=== PATIENT | male | born 1945 | race Caucasian/White ===

== ENCOUNTER 2017-04-16 22:03 | Emergency (ER) | payer OTHER, BC ==
[2017-04-16 22:10] VITALS: RESP 16; TEMP 97.7
--- NOTE | 2017-04-16 22:23 | EDPHY ---
H & P Stated Complaint: constipation, abd pressure, no bowel movement x 3 days HPI/ROS: HPI CHIEF COMPLAINT: Constipation, abdominal bloating HISTORY OF PRESENT ILLNESS: This patient very pleasant 71-year-old male otherwise healthy except for hypertension, presents emergency room with abdominal pain and abdominal bloating. Patient states he is from [place]. He has been traveling recently he was in [place] and then just landed [place] today. He states he has not had a bowel movement for 3 days. He feels bloated and constipated he did try to take an enema prior to arriving to the emergency room and had some output but still feels constipated. Denies fever, denies chest pain or shortness of breath denies abdominal pain or vomiting. Denies black tarry stool. Past Medical History: Hypertension Past Surgical History: No recent surgery Social History: Lives in [place], denies illicit drugs alcohol tobacco. Family History: Noncontributory ROS REVIEW OF SYSTEMS: A comprehensive 10 point review of systems is otherwise negative aside from elements mentioned in the history of present illness. Exam Constitutional appears well nontoxic triage nursing summary reviewed, vital signs reviewed, awake/alert. Eyes normal conjunctivae and sclera, EOMI, PERRLA. HENT normal inspection, atraumatic, moist mucus membranes, no epistaxis, neck supple/ no meningismus, no raccoon eyes. Respiratory clear to auscultation bilaterally, normal breath sounds, no respiratory distress, no wheezing. Cardiovascular rate normal, regular rhythm, no murmur, no edema, distal pulses normal. Gastrointestinal soft, hypoactive bowel sounds, no rebound, no guarding, normal bowel sounds, no distension, no pulsatile mass. Genitourinary no CVA tenderness. Musculoskeletal no midline vertebral tenderness, full range of motion, no calf swelling, no tenderness of extremities, no meningismus, good pulses, neurovascularly intact. Skin pink, warm, & dry, no rash, skin atraumatic. Neurologic awake, alert and oriented x 3, AAOx3, moves all 4 extremities equally, motor intact, sensory intact, CN II-XII intact, normal cerebellar, normal vision, normal speech. Psychiatric normal mood/affect. Heme/Lymph/Immune no lymphadenopathy. Differential Diagnosis: Includes but is not limited to in a particular order constipation, fecal impaction, bowel obstruction Medical Decision Making: Plan for this patient KUB and then enema. Re-evaluation: 230: Patient had a rather large bowel movement in the ER bathroom. He tells me feels much better. This was post x-ray. I did offer him an enema however he has declined. He states he feels much better would like to be discharged from the emergency room. 2308: KUB is been reviewed. No free air. Constipation seen. Source: Patient - Personal History Current Tetanus/Diphtheria Vaccine: Yes - Medical/Surgical History Hx Asthma: No Hx Chronic Respiratory Disease: No Hx Diabetes: No Hx Cardiac Disease: Yes Hx Renal Disease: No Hx Cirrhosis: No Hx Alcoholism: No Hx HIV/AIDS: No Hx Splenectomy or Spleen Trauma: No Other PMH: HTN - Social History Smoking Status: Never smoked Constitutional: Initial Vital Signs Temperature (C) 36.5 C 04/16/17 22:07 Heart Rate 80 04/16/17 22:07 Respiratory Rate 16 04/16/17 22:07 Blood Pressure 167/79 H 04/16/17 22:07 O2 Sat (%) 93 04/16/17 22:07 O2 Delivery Mode Room Air Allergies/Adverse Reactions: Sulfa (Sulfonamide Antibiotics) Allergy (Verified 04/16/17 22:09) Home Medications: Medication Instructions Recorded Amlodipine Besylate [Norvasc] 5 mg PO 04/16/17 Ciprofloxacin HCl [Ciprofloxacin 0.5 each OT Q12 04/16/17 Opth Drops] Lisinopril [Zestril 20 mg (*)] 20 mg PO DAILY 04/16/17 Polyethylene Glycol 3350 [Miralax 17 gm PO DAILY #2 pkt 04/16/17 17 gm (*)] Medical Decision Making - Diagnostics Imaging Results: Imaging Impressions Abdomen X-Ray 04/16/17 22:29 Impression: 1. Moderate constipation suspected. Departure - Departure Disposition: Home, Routine, Self-Care Clinical Impression: Constipation Qualifiers: Constipation type: other constipation type Qualified Code(s): K59.09 - Other constipation Condition: Good Instructions: Constipation (ED) Additional Instructions: 1. Drink lots of fluids stay well-hydrated. 2. Return emergency room if you have worsening abdominal pain fever vomiting. Referrals: [facility] [Other] - As per Instructions Prescriptions: Polyethylene Glycol 3350 [Miralax 17 gm (*)] 17 gm PO DAILY #2 pkt
[2017-04-16 23:22] VITALS: BP 150/88; PULSE 89; O2SAT 92
== END 2017-04-16 23:21 | disposition home or self-care (01) ==
DX: K59.09 Other constipation (principal); I10 Essential (primary) hypertension